=== PATIENT | female | born 1940 | race Caucasian/White ===

== ENCOUNTER 2021-07-12 13:37 | Outpatient (CLI) | payer OTHER | END 2021-07-12 13:43 | disposition home or self-care (01) | LOC: RAD 13:37 | DX: M16.11 Unilateral primary osteoarthritis, right hip (principal); M24.551 Contracture, right hip; M24.552 Contracture, left hip ==

== ENCOUNTER 2024-06-05 08:56 | Outpatient (CLI) | payer OTHER ==
[~2024-06-05 08:56] MED LIST: DICLOFENAC POTA50 MG PO; METHOCARBAMOL500 MG PO
== END 2024-06-05 09:08 | disposition home or self-care (01) ==
LOC: MRI 08:56
DX: N18.30 Chronic kidney disease, stage 3 unspecified (principal)
CPT/HCPCS: 72197; 74183